=== PATIENT | female | born 1985 | race Caucasian/White ===

== ENCOUNTER 2024-08-20 07:46 | Outpatient (CLI) | payer BC, SELFPAY ==
--- NOTE | ~2024-08-20 | MM_ITS ---
EXAMINATION: MM screening stefani BI w ezekiel HISTORY: Screening TECHNIQUE: Craniocaudal and mediolateral oblique 3-D tomosynthesis images were obtained and synthetic 2-D images were generated. CAD analysis was submitted and interpreted. COMPARISON: No prior mammogram is available for comparison at this institution. BREAST PARENCHYMAL COMPOSITION: Not Dense: The breasts are almost entirely fatty. FINDINGS: There are small subcentimeter masses in the upper outer and lower inner quadrants of the le ft breast. There is no mammographic evidence for malignancy in the right breast. IMPRESSION: 1. Multiple left breast masses. 2. Additional mammographic views and possible breast ultrasound are recommended. BI-RADS Category 0: Incomplete: Needs additional imaging evaluation. Reviewed, dictated and finalized at location [] L TIER IMPRESSION: 1. Multiple left breast masses. 2. Additional mammographic views and possible breast ultrasound are recommended . BI-RADS Category 0: Incomplete: Needs additional imaging evaluation.
== END 2024-08-20 07:47 | disposition home or self-care (01) ==
LOC: ANHIMG 07:49
PROVIDERS: PCP Internal Medicine; Visit Provider Nurse Practitioner
DX: Z12.31 Encounter for screening mammogram for malignant neoplasm of breast (principal); R92.8 Other abnormal and inconclusive findings on diagnostic imaging of breast
CPT/HCPCS: 77063; 77067

== ENCOUNTER 2024-09-09 10:53 | Outpatient (CLI) | payer BC, SELFPAY ==
--- NOTE | ~2024-09-09 | MMUS_ITS ---
EXAMINATION: US breast LT complete, MM diagnostic stefani LT w ezekiel HISTORY: Follow-up left breast masses. TECHNIQUE: Additional 3-D tomosynthesis images of the left breast were performed and synthetic 2-D im ages were generated. CAD analysis was submitted and interpreted. High resolution complete left breast ultrasound was performed. COMPARISON: 08/20/2020 BREAST PARENCHYMAL COMPOSITION: Not Dense: The breasts are almost entirely fatty. FINDINGS: MAMMOGRAPHIC FINDINGS: There is a small benign-appearing intramammary lymph node in the upper outer quadrant of the left tony ast. There is a radiolucent mass in the upper outer quadrant of the left breast, posterior third. The re is a radiolucent mass in the lower inner quadrant of the left breast, middle third. There are no s uspicious calcifications or architectural distortion. ULTRASOUND: Complete US of all 4 quadrants of the left breast/s and retroareolar region was reviewed. At 12:00 ne ar the nipple there is a complicated cyst measuring 6 mm with internal septation. No internal vascula rity or posterior features. At 8:00, 6 cm from the nipple there is a 9 mm minimally complicated cyst. No suspicious solid masses to suggest malignancy. No definite sonographic correlate to mass in the u pper outer quadrant of the left breast, possibly also an intramammary lymph node. IMPRESSION: 1. Probable benign findings of the left breast. 2. Recommend 6 month follow-up diagnostic left mammogram and left breast ultrasound. BI-RADS category 3, probably benign findings. 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 Probable benign findings of the left breast. 2. Recommend 6 month follow-up diagnostic left mammogram and left breast ultras ound. BI-RADS category 3, probably benign findings.
--- OUTSIDE RECORDS SUMMARY | 2024-09-16 07:05 | XMS_ITS ---
Author Organization [facility] [employer] [facility] Address [facility] [address] [address] Care Team Providers Care Boat Cleaner Name Role Phone Carmen Pitno MD Primary Care Provider Halina Jesus Unavailable [phone] REASON FOR VISIT RE:RE:Nicotine patches Social History Sex Assigned At : Social History Observation Description Sex Assigned At Female Encounters Encounter Location Date Provider Diagnosis [place] [id number] [facility], [facility] [address] [address] 07/17/2024 Halina Pizarro Plan Of Treatment Next Appt Details Provider Name:Halina mcmullen, 10/15/2024 09:00:00 AM, [address], [facility] [address], [place], [address], Progress Notes * MILLY OLIVERADOB:[birth year] (38 yo F)Acc No.[id number]:07/17/2024 Patient:?MILLY OLIVERA :1985???Age:38 Y???Sex:Female Address:[address] [place] [address], [place], [address] * true * Date:? 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
--- OUTSIDE RECORDS SUMMARY | 2024-09-16 07:05 | XMS_ITS ---
Author Organization [facility] Address [address] [facility] [address] [facility] [address] [place] [address] Care Team Providers Care Manager Music Name Role Phone Carmen Pinto MD Primary Care Provider Halina Jesus Unavailable [phone] REASON FOR VISIT Nicotine patches Social History Sex Assigned At : Social History Observation Description Sex Assigned At Female Encounters Encounter Location Date Provider Diagnosis [facility] [address] [facility] [address] [facility] [address] [place] [address] 07/17/2024 Halina Pizarro Plan Of Treatment Next Appt Details Provider Name:Halina mcmullen, 10/15/2024 09:00:00 AM, [address], [facility] [address], [place], [address], Progress Notes * MILLY OLIVERADOB:[birth year] (38 yo F)Acc No.[id number]:07/17/2024 Patient:?MILLY OLIVERA :1985???Age:38 Y???Sex:Female Address:[address] [place] [address], [place], [address] * true * Date:? 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
--- OUTSIDE RECORDS SUMMARY | 2024-09-16 07:05 | XMS_ITS ---
Author Organization [facility] Address [address] [facility] [address] [facility] [place] [address] [place] [address] Care Team Providers Care Data Center Technician Name Role Phone Carmen Pinto MD Primary Care Provider UnavailHalina Maldonado Unavailable [phone] REASON FOR VISIT RE:Nicotine patches Social History Sex Assigned At : Social History Observation Description Sex Assigned At Female Encounters Encounter Location Date Provider Diagnosis [facility] [address] [facility] [place] [address] [place] [address] 07/17/2024 Halina Pizarro Plan Of Treatment Next Appt Details Provider Name:Halina mcmullen, 10/15/2024 09:00:00 AM, [address], [facility] [place] [address], [place], [address], Progress Notes * MILLY OLIVERADOB:[birth year] (38 yo F)Acc No.[id number]:07/17/2024 Patient:?MILLY OLIVERA :1985???Age:38 Y???Sex:Female Address:[address] [place] [address], [place], [address] * true * Date:? 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
--- OUTSIDE RECORDS SUMMARY | 2024-09-16 07:06 | XMS_ITS | Patient Health Record ---
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 Name Role Phone Carmen Pinto MD Primary Care Provider Unavailab Halina Monae Unavailable [phone] Tamy Bal Unavailable [phone] Migration, Provider Unavailable Unavailable Allergies No Known Allergies Results Component Value Reference Range Notes CBC W/ AUTO DIFF Reviewed date:10/05/2023 12:00:00 AM Interpretation: Performing Lab: Notes/Report: ABSOLUTE BASOPHILS 50 CELLS/UL ABSOLUTE EOSINOPHILS 525 CELLS/UL ABSOLUTE LYMPHOCYTES 2614 CELLS/UL ABSOLUTE MONOCYTES 515 CELLS/UL ABSOLUTE NEUTROPHILS 6197 CELLS/UL BASOPHILS 0.5 % EOSINOPHILS 5.3 % HEMATOCRIT 43.6 % HEMOGLOBIN 15.2 G/DL LYMPHOCYTES 26.4 % MCH 32.9 PG MCHC 34.9 G/DL MCV 94.4 FL MONOCYTES 5.2 % MPV 11.8 FL NEUTROPHILS 62.6 % PLATELET COUNT 259 THOUSAND/UL RDW 12.5 % RED BLOOD CELL COUNT 4.62 MILLION/UL WHITE BLOOD CELL COUNT 9.9 THOUSAND/UL CMP, SERUM OR PLASMA Reviewed date:10/05/2023 12:00:00 AM Interpretation: Performing Lab: Notes/Report: ALBUMIN 4.4 G/DL ALBUMIN/GLOBULIN RATIO 2.2 (CALC) ALKALINE PHOSPHATASE 69 U/L ALT 18 U/L AST 16 U/L BILIRUBIN, TOTAL 0.5 MG/DL BUN/CREATININE RATIO SEE NOTE: (CALC) CALCIUM 9.2 MG/DL CARBON DIOXIDE 23 MMOL/L CHLORIDE 104 MMOL/L CREATININE 0.70 MG/DL EGFR 113 ML/MIN/1.73M 2 GLOBULIN 2.0 G/DL (CALC) GLUCOSE 89 MG/DL POTASSIUM 3.7 MMOL/L PROTEIN, TOTAL 6.4 G/DL SODIUM 139 MMOL/L UREA NITROGEN (BUN) 7 MG/DL HBA1C (HEMOGLOBIN A1C)NAOMI Reviewed date:10/05/2023 12:00:00 AM Interpretation: Performing Lab: Notes/Report: HEMOGLOBIN A1C 4.7 % OF TOTAL HGB UDT Reviewed date:04/07/2024 12:50:49 PM Interpretation: Performing Lab: Notes/Report: THC neg 0 - 50 ng/ml Cocaine neg 0 - 300 ng/ml Amphetamine neg 0 - 1000 ng/ml Buprenorphine (BUP) neg 0 - 10 ng/ml Secobarbital (Bar) neg 0 - 300 ng/ml Oxazepam (BZO) neg 0 - 300 ng/ml 7-ivlhcpksna-1,0-dudaiyqo-0, 3-diphen ylpyrrolidine (EDDP) neg 0 - 300 ng/ml Methamphetamine (MET) neg 0 - 1000 ng/ml Methylenedioxymethamphetamine (MDMA) neg 0 - 500 ng/ml Morphine (MOP 300/[id number]) neg 0 - 300 ng/ml Methadone (MTD) neg 0 - 300 ng/ml Phencyclidine (PCP) neg 0 - 25 ng/ml Propoxyphene (PPX) neg 0 - 300 ng/ml Nortriptyline (TCA) neg 0 - 1000 ng/ml Oxycodone pos 0 - 300 ng/ml UDT Reviewed date:04/21/2024 09:11:28 AM Interpretation: Performing Lab: Notes/Report: THC NEG 0 - 50 ng/ml Cocaine Neg 0 - 300 ng/ml Amphetamine NEG 0 - 1000 ng/ml Buprenorphine (BUP) NEG 0 - 10 ng/ml Secobarbital (Bar) NEG 0 - 300 ng/ml Oxazepam (BZO) NEG 0 - 300 ng/ml 4-zemetxkwpz-9,2-tgzfxcti-2, 3-diphen ylpyrrolidine (EDDP) NEG 0 - 300 ng/ml Methamphetamine (MET) NEG 0 - 1000 ng/ml Methylenedioxymethamphetamine (MDMA) NEG 0 - 500 ng/ml Morphine (MOP 300/[id number]) NEG 0 - 300 ng/ml Methadone (MTD) NEG 0 - 300 ng/ml Phencyclidine (PCP) NEG 0 - 25 ng/ml Propoxyphene (PPX) NEG 0 - 300 ng/ml Nortriptyline (TCA) NEG 0 - 1000 ng/ml Oxycodone POS 0 - 300 ng/ml UDT Reviewed date:07/16/2024 02:31:01 PM Interpretation: Performing Lab: Notes/Report: THC n 0 - 50 ng/ml Cocaine n 0 - 300 ng/ml Amphetamine n 0 - 1000 ng/ml Buprenorphine (BUP) n 0 - 10 ng/ml Secobarbital (Bar) n 0 - 300 ng/ml Oxazepam (BZO) n 0 - 300 ng/ml 1-ppvxfyzapb-6,6-chvbjnqg-4, 3-diphen ylpyrrolidine (EDDP) n 0 - 300 ng/ml Methamphetamine (MET) n 0 - 1000 ng/ml Methylenedioxymethamphetamine (MDMA) n 0 - 500 ng/ml Morphine (MOP 300/ETP1167) n 0 - 300 ng/ml Methadone (MTD) n 0 - 300 ng/ml Propoxyphene (PPX) n 0 - 300 ng/ml Nortriptyline (TCA) n 0 - 1000 ng/ml Oxycodone n 0 - 300 ng/ml LITHIUM (613) Reviewed date:07/28/2024 09:44:59 AM Interpretation: Performing Lab:MIGUEL [facility] [place]rami[address] HongaKS[address] Alberta Kaur MD Notes/Report: NON-FASTING; NON-FASTING; NON-FASTING; NON-FASTING; NON-FAST FASTING:YES FASTING: YES LITHIUM 0.5 0.6-1.2 mmol/L VITAMIN B12/FOLATE, SERUM PA AYAKA (7004) Reviewed date:07/28/2024 09:44:29 AM Interpretation: Performing Lab:Nataliya RIVERA-Ezcuar[address] Mauro HongaKS[address] Alberta Kaur MD Notes/Report: NON-FASTING; NON-FASTING; NON-FASTING; NON-FASTING; NON-FAST FASTING:YES FASTING: YES VITAMIN B12 [phone] pg/mL Please Note: Although the reference range for vitamin B12 is 200-1100 pg/mL, it has been reported that between 5 and 10% of patients with values between 200 and 400 pg/mL may experience neuropsychiatric and hematologic abnormalities due to occult B12 deficiency; less than 1% of patients with values above 400 pg/mL will have symptoms. FOLATE, SERUM 4.9 Reference Range Low: <3.4 Borderline: 3.4-5.4 Normal: >5.4 COMPREHENSIVE METABOLIC PANE L (07293) Reviewed date:07/28/2024 09:44:15 AM Interpretation: Performing Lab:KS, [facility]-[id number] Dannielle [facility], VnbbeuNP[address] Alberta Kaur MD Notes/Report: NON-FASTING; NON-FASTING; NON-FASTING; NON-FASTING; NON-FAST FASTING:YES FASTING: YES GLUCOSE 82 65-99 mg/dL Fasting reference interval UREA NITROGEN (BUN) 7 7-25 mg/dL CREATININE 0.69 0.50-0.97 mg/dL EGFR 113 > OR = 60 mL/min/1.73m2 BUN/CREATININE RATIO SEE NOTE: 6-22 (calc) Not Reported: BUN and Creatinine are within reference range. SODIUM 137 135-146 mmol/L POTASSIUM 4.2 3.5-5.3 mmol/L CHLORIDE 104 98-110 mmol/L CARBON DIOXIDE 26 20-32 mmol/L CALCIUM 9.3 8.6-10.2 mg/dL PROTEIN, TOTAL 6.7 6.1-8.1 g/dL ALBUMIN 4.4 3.6-5.1 g/dL GLOBULIN 2.3 1.9-3.7 g/dL (calc) ALBUMIN/GLOBULIN RATIO 1.9 1.0-2.5 (calc) BILIRUBIN, TOTAL 0.7 0.2-1.2 mg/dL ALKALINE PHOSPHATASE 69 31-125 U/L AST 19 10-30 U/L ALT 25 6-29 U/L LIPID PANEL, SERUM Reviewed date:10/05/2023 12:00:00 AM Interpretation: Performing Lab: Notes/Report: CHOL/HDLC RATIO 5.6 (CALC) CHOLESTEROL, TOTAL 196 MG/DL HDL CHOLESTEROL 35 MG/DL LDL-CHOLESTEROL MG/DL (CALC) NON HDL CHOLESTEROL 161 MG/DL (CALC) TRIGLYCERIDES 401 MG/DL LITHIUM, SERUM Reviewed date:10/05/2023 12:00:00 AM Interpretation: Performing Lab: Notes/Report: LITHIUM 0.8 MMOL/L TSH, SERUM, REFLEX FREE T4 Reviewed date:10/05/2023 12:00:00 AM Interpretation: Performing Lab: Notes/Report: TSH W/REFLEX TO FT4 3.05 MIU/L VITAMIN D, 25-HYDROXY, TOTAL , SERUM Reviewed date:10/05/2023 12:00:00 AM Interpretation: Performing Lab: Notes/Report: VITAMIN D,25-OH,TOTAL,IA 27 NG/ML CALCITRIOL 1,25 DIHYDROXYVIT SILVA D (20842) Reviewed date:07/28/2024 09:44:39 AM Interpretation: Performing Lab:Z3E, [facility]-[address] [place] [address], [address] HospitalIobmjvykalVS[address] Sandeep Sorensen MD,PhD Notes/Report: NON-FASTING; NON-FASTING; NON-FASTING; NON-FASTING; NON-FAST FASTING:YES FASTING: YES VITAMIN D, 1,25 (OH)2, TOTAL 51 18-72 pg/mL VITAMIN D3, 1,25 (OH)2 51 VITAMIN D2, 1,25 (OH)2 <8 (Note) Vitamin D3, 1,25(OH)2 indicates both endogenous production and supplementation. Vitamin D2, 1,25(OH)2 is an indicator of exogenous sources, such as diet or supplementation. Interpretation and therapy are based on measurement of Vitamin D, 1,25 (OH)2, Total. This test was developed, and its analytical performance characteristics have been determined by [employer]. It has not been cleared or approved by the FDA. This assay has been validated pursuant to the CLIA regulations and is used for clinical purposes. For additional information, please refer to http://education.[employer].com/faq/FA Q199 (This link is being provided for informational/educatio nal purposes only.) [facility] [employer] [address] [facility] [address] [facility] [id number] Sandeep Sorensen MD, PhD HEMOGLOBIN A1c (496) Reviewed date:07/28/2024 09:44:47 AM Interpretation: Performing Lab:BROWN [facility]De[facility]arn[facility] Word Health SystemNhaoq[address] [facility] HospitalTfqenjcJD[address] [facility] Notes/Report: NON-FASTING; NON-FASTING; NON-FASTING; NON-FASTING; NON-FAST FASTING:YES FASTING: YES HEMOGLOBIN A1c 5.1 <5.7 % of total Hgb For the purpose of screening for the presence of diabetes: <5.7% Consistent with the absence of diabetes 5.7-6.4% Consistent with increased risk for diabetes (prediabetes) > or =6.5% Consistent with diabetes This assay result is consistent with a decreased risk of diabetes. Currently, no consensus exists regarding use of hemoglobin A1c for diagnosis of diabetes in children. According to [place] [employer] Association (ADA) guidelines, hemoglobin A1c <7.0% represents optimal control in non- diabetic patients. Different metrics may apply to specific patient populations. Standards of Medical Care in Diabetes(ADA). CBC (INCLUDES DIFF/PLT) (REF L) (87340) Reviewed date:07/28/2024 09:44:06 AM Interpretation: Performing Lab:MIGUEL [facility]-[id number] Dannielle [facility], VwrosnMR[address] Alberta Kaur MD Notes/Report: NON-FASTING; NON-FASTING; NON-FASTING; NON-FASTING; NON-FAST FASTING:YES FASTING: YES WHITE BLOOD CELL COUNT 11.0 3.8-10.8 Thousand/uL RED BLOOD CELL COUNT 4.96 3.80-5.10 Million/uL HEMOGLOBIN 16.0 11.7-15.5 g/dL HEMATOCRIT 48.5 35.0-45.0 % MCV 97.8 80.0-100.0 fL MCH 32.3 27.0-33.0 pg MCHC 33.0 32.0-36.0 g/dL For adults, a slight decrease in the calculated MCHC value (in the range of 30 to 32 g/dL) is most likely not clinically significant; however, it should be interpreted with caution in correlation with other red cell parameters and the patient's clinical condition. RDW 12.4 11.0-15.0 % PLATELET COUNT 339 140-400 Thousand/uL MPV 11.1 7.5-12.5 fL ABSOLUTE NEUTROPHILS [phone] cells/uL ABSOLUTE LYMPHOCYTES 0983 422-5514 cells/uL ABSOLUTE MONOCYTES 385 200-950 cells/uL ABSOLUTE EOSINOPHILS 374 15-500 cells/uL ABSOLUTE BASOPHILS 55 0-200 cells/uL NEUTROPHILS 75 LYMPHOCYTES 17.6 MONOCYTES 3.5 EOSINOPHILS 3.4 BASOPHILS 0.5 DRUG MONITOR, OXYCODONE, W/C ONF, URINE (77235) Reviewed date:05/06/2024 11:12:45 AM Interpretation: Performing Lab:MAREI, [employer]-[address], LiquipelUurbWQ[address] Raza Winters Notes/Report: FASTING: NO Oxycodone TNP TEST NOT PERFORMED The container has no or insufficient patient identification. DRUG MONITOR, BENZO, QN, URI [place] (21909) Reviewed date:05/06/2024 11:12:52 AM Interpretation: Performing Lab:MARIE, [facility]-[address], BizArkLenyWR[address] Raza Winters, Director - [id number] [facility] HospitalProgrammrWashington Notes/Report: FASTING: NO Alphahydroxyalprazolam TNP TEST NOT PERFORMED The container has no or insufficient patient identification. Notes and Comments This drug testing is for medical treatment only. Analysis was performed as non-forensic testing and these results should be used only by healthcare providers to render diagnosis or treatment, or to monitor progress of medical conditions. Healthcare Providers needing Interpretation assistance, please contact us at [phone] ( ) M-F, 8am to 10pm EST Reason For Referral No Information Medications Medication SIG (Take, Route, Frequency, Duration) Notes Start Date End Date Status DULoxetine HCl 60 MG 1 capsule Oral Once a day for 30 days provider change, please DC refills from Tamy Burroughs Active Metoprolol Succinate ER 25 MG Oral 01/07/2024 Active EMGALITY PEN 120 MG/ML SUBCUTANEOUS PEN INJECTOR *Reorder from [employer] for eRx and Interaction Alerts* 01/07/2024 Active EPINEPHrine 0.3 MG/0.3ML Injection 01/07/2024 Active Ergocalciferol 1.25 MG (56614 UT) 1 capsule Oral once a week for 84 days provider change, please DC refills from Tamy Burroughs 01/07/2024 12/31/2024 Active Lott Carbonate 600 MG 1 capsule Oral twice a day for 30 days provider change, please DC refills from Tamy W. Active Naltrexone HCl 50 MG 1 tablet Oral Once a day for 30 days provider change, please DC refills from Tamy Burroughs 10/14/2024 Active Vraylar 3 MG 1 capsule Orally Once a day for 30 days provider change, please DC refills from Tamy Burroughs Active Levothyroxine Sodium 25 MCG Oral 01/07/2024 Active Prazosin HCl 2 MG 1 capsule at bedtime Oral Once a day for 30 days provider change, please DC refills from Tamy Becerra. Active clonazePAM 0.5 MG 1 tablet Oral Once a day for 30 days As needed provider change, please DC refills from Tamy Burroughs 07/16/2024 Active LILETTA 20.4 MCG/24 HR (UP TO 8 YEARS) 52 MG INTRAUTERINE DEVICE *Reorder from [employer] for eRx and Interaction Alerts* 01/07/2024 Active Immunizations Vaccine Route Administration Date Status Comme nts Influenza, injectable, MDCK, preservative free Unknown 06/10/2020 Administered [facility] Covid-19 Vaccine Unknown 11/09/2020 Administere d Pfizer Biontech Covid-19 Vac cine 2nd dose Unknown 07/31/2021 Administered Pfizer [employer] Covid-19 Vac cine 2nd dose Unknown 06/24/2022 Administered Social History Tobacco Use: Social History Observation Description Date Details (start date - stop date) Current Smoker 07/23/2002 - NA Sex Assigned At : Social History Observation Description Sex Assigned At Female Tobacco Control (Standard) Question Answer Notes Tobacco use: Current smoker When did you start smoking? 07/23/2002 How often do you smoke cigarettes? Every day How many cigarettes a day do you smoke? 21-30 How soon after you wake up do you smoke your fir st cigarette? 6-30 minutes Are you interested in quitting? Not ready to edwin t AUDIT-C (Standard) Question Answer Notes Points 1 Interpretation Positive Did you have a drink contain ing alcohol in the past year? Yes How often did you have six o r more drinks on one occasion in the past year? Never (0 point) How many drinks did you have on a typical day when you were drinking in the past year? 1 or 2 drinks (0 point) How often did you have a dri nk containing alcohol in the past year? Monthly or less (1 point) Problems Problem Type SNOMED Code ICD Code Onset Dates Problem Status W/U Status Risk Notes Problem Vitamin D deficiency (60077727) Vitamin D deficiency, unspecified (E55.9) 4 Active confirmed Problem Generalized anxiety disorder (12744472) Generalized anxiety disorder (F41.1) 4 Active confirmed Problem Posttraumatic stress disorder (25855854) Post-traumatic stress disorder, chronic (F43.12) 4 Active confirmed Problem Bipolar I disorder (993792442) Bipolar I disorder (F31.9) Active confirmed Problem Tobacco user (690350389) Nicotine dependence with current use (F17.200) Active confirmed Vital Signs Heart Rate 112 /min 07/16/2024 Height-cm 170.18 cm 07/16/2024 Blood pressure diastolic 101 mm Hg 07/16/2024 Weight-kg 96.16 kg 07/16/2024 Height 67.00 in 07/16/2024 Blood pressure systolic 145 mm Hg 07/16/2024 Weight 212 lbs 07/16/2024 BMI 33.2 kg/m2 07/16/2024 Encounters Encounter Location Date Provider Diagnosis [facility] [place] [id number] [facility] [address] [address] 10/04/2023 Tamy Bal Generalized anxiety disorder F41.1 ; Bipolar disorder, unspecified F31.9 ; Vitamin D deficiency, unspecified E55.9 ; Post-traumatic stress disorder, chronic F43.12 and Other mcfp (current) drug therapy Z79.899 [facility] [address] [facility] [address] [address] 10/06/2023 Provider Migration Vitamin D deficiency, unspecified E55.9 [facility] [place] [id number] [facility] [address] [address] 01/07/2024 Tamy Bal Vitamin D deficiency, unspecified E55.9 ; Generalized anxiety disorder F41.1 ; Bipolar disorder, unspecified F31.9 and Post-traumatic stress disorder, chronic F43.12 [facility] [address] [facility] [address] [address] 04/07/2024 Tamy Bal Bipolar I disorder F31.9 ; Generalized anxiety disorder F41.1 ; Post-traumatic stress disorder, chronic F43.12 and Vitamin D deficiency, unspecified E55.9 [facility] [address] [facility] [address] [address] 04/21/2024 Tamy Bal Bipolar I disorder F31.9 ; Generalized anxiety disorder F41.1 ; Post-traumatic stress disorder, chronic F43.12 and Vitamin D deficiency, unspecified E55.9 [facility], [facility] [address] [place] [address] 05/19/2024 Tamy Mally Bipolar I disorder F31.9 ; Generalized anxiety disorder F41.1 ; Post-traumatic stress disorder, chronic F43.12 and Vitamin D deficiency, unspecified E55.9 [facility], [facility] [address] [place] [address] 07/16/2024 Halina Pizarro Bipolar I disorder F31.9 ; Generalized anxiety disorder F41.1 ; Post-traumatic stress disorder, chronic F43.12 ; Vitamin D deficiency, unspecified E55.9 and Nicotine dependence with current use F17.200 [facility], [facility] [address] [place] [address] 09/20/2023 Provider Migration [facility], [facility] [address] [place] [address] 09/24/2023 Provider [facility], [facility] [address] [place] [address] 09/25/2023 Provider Migration [facility], [facility] [address] [place] [address] 10/06/2023 Provider [facility], [facility] [address] [place] [address] 10/23/2023 Provider Migration [facility], [facility] [address] [place] [address] 01/19/2024 Provider [facility], [facility] [address] [place] [address] 01/20/2024 [facility], [facility] [address] [place] [address] 05/07/2024 Tamy Bal [facility], [facility] [address] [place] [address] 05/07/2024 [facility], [facility] [address] [place] [address] 05/08/2024 [facility], [facility] [address] [facility] [address] [place] [address] 05/08/2024 Tamy Mally [facility] [address] [facility] [address] [place] [address] 07/17/2024 Halina Sirishaernesto [place] [address] [facility] [address] [place] [address] 07/17/2024 Halina Pizarro [facility], [place] [address] [address] 07/17/2024 Halina Sirishaernesto Assessments Encounter Date Diagnosis (ICD Code) Assessment Notes Treatment Notes Treatment Clinical Notes Section Notes 04/07/2024 Bipolar I disorder (ICD-10 - F31.9) decrease latuda to 80mg daily x 1 wk, then 40mg daily x 1 wk, then stop at the same time start vraylar 1.5mg every other day x 1 wk, then daily (gave 3 boxes samples) cont duloxetine 60mg daily (higher dose seemed to cause activation) cont lithium 600 mg BID- stay well hydrated, avoid NSAIDS or overheating, has IUD cont therapy *After visit: note UDS +OXY, neg BZO, send for conf having depression, discuss several options, liked vraylarin past but was costly, but has new insurance now, shared decision to try vraylar again, review r/b/se. cont therapy f/u in 2 wks, earlier if concerns Electronic Prior Authorization was requested for Vraylar 1.5 MG Capsule. 01/07/2024 Vitamin D deficiency, unspecified (ICD-10 - E55.9) 01/07/2024 Bipolar disorder, unspecified (ICD-10 - F31.9) 01/07/2024 Generalized anxiety disorder (ICD-10 - F41.1) 01/07/2024 Post-traumatic stress disorder, chronic (ICD-10 - F43.12) 10/04/2023 Vitamin D deficiency, unspecified (ICD-10 - E55.9) 10/04/2023 Bipolar disorder, unspecified (ICD-10 - F31.9) 10/04/2023 Generalized anxiety disorder (ICD-10 - F41.1) 10/04/2023 Post-traumatic stress disorder, chronic (ICD-10 - F43.12) 10/04/2023 Other mcfp (current) drug therapy (ICD-10 - Z79.899) 04/21/2024 Bipolar I disorder (ICD-10 - F31.9) having improvement just finished latuda taper increase vraylar to 3mg daily cont duloxetine 60mg daily (higher dose seemed to cause activation) cont lithium 600 mg BID- stay well hydrated, avoid NSAIDS or overheating, has IUD cont therapy again UDS +OXY, neg BZO; UDS conf from last visit not in chart; denies OXY use, send for conf if positive will have further discussion, and should not combine with BZO having improvement, discuss options, allow more time vs increase, she feels mood and anxiety sx are still significant at 03/12 and wants to increase, review r/b/se, if side effects can take 3mg every other day and try increase again in a few weeks. pt v/u BP elevated today, denies sx, had energy drink this am-doesn't usually, advise against; f/u PCP cont therapy f/u in 1 month, earlier if concerns 10/06/2023 Vitamin D deficiency, unspecified (ICD-10 - E55.9) 07/16/2024 Generalized anxiety disorder (ICD-10 - F41.1) Assessment and Plan: 1. Bipolar Disorder - Patient reported a manic episode at the end of May and beginning of June, triggered by uncle's , work stress, and seasonal changes. - Currently stable and feeling better - Continues to see therapist twice a week - Currently on Vraylar 3 mg, switched from Latuda due to lack of effectiveness. Plan: - Discussed options in medication changes, she prefers not to change medications right now, she feels good and safe, felt she controlled things well, and therapy is helps tremendously. - Monitor for any changes in mood or symptoms. - Follow up in September, call if concerns arise and come in sooner cont vraylar 3 mg, cont lithium 300 mg BID 2. Anxiety - Patient reports manageable anxiety related to starting a new job, using relaxation techniques and coping skills. Plan: - continue cymbalta 60 MG DAILY - Continue current coping strategies and monitor for any increase in anxiety levels. - Encourage patient to reach out if anxiety worsens. 6. Lott Monitoring - Last labs were in October, and patient is due for updated labs. Plan: - Order labs for lithium levels at [facility] in [place]. - Instruct patient to complete labs within the next few days. 7. Nicotine dependence - trying to quit, asks for patches - start nicotine patches, 21 mg 7. Follow-up - Schedule a follow-up appointment in September to assess patient's progress and address any concerns. 07/16/2024 Bipolar I disorder (ICD-10 - F31.9) Assessment and Plan: 1. Bipolar Disorder - Patient reported a manic episode at the end of May and beginning of June, triggered by uncle's , work stress, and seasonal changes. - Currently stable and feeling better - Continues to see therapist twice a week - Currently on Vraylar 3 mg, switched from Latuda due to lack of effectiveness. Plan: - Discussed options in medication changes, she prefers not to change medications right now, she feels good and safe, felt she controlled things well, and therapy is helps tremendously. - Monitor for any changes in mood or symptoms. - Follow up in September, call if concerns arise and come in sooner cont vraylar 3 mg, cont lithium 300 mg BID 2. Anxiety - Patient reports manageable anxiety related to starting a new job, using relaxation techniques and coping skills. Plan: - continue cymbalta 60 MG DAILY - Continue current coping strategies and monitor for any increase in anxiety levels. - Encourage patient to reach out if anxiety worsens. 6. Lott Monitoring - Last labs were in October, and patient is due for updated labs. Plan: - Order labs for lithium levels at [facility] in [place]. - Instruct patient to complete labs within the next few days. 7. Nicotine dependence - trying to quit, asks for patches - start nicotine patches, 21 mg 7. Follow-up - Schedule a follow-up appointment in September to assess patient's progress and address any concerns. 05/19/2024 Bipolar I disorder (ICD-10 - F31.9) continued improvement cont vraylar 3mg daily cont duloxetine 60mg daily (higher dose seemed to cause activation) cont lithium 600 mg BID- stay well hydrated, avoid NSAIDS or overheating, has IUD cont therapy tolerating med changes and significant improvement UDS conf-cannot find in chart, but recall seeing a result that was negative oxy after staff contacted lab about sample ID issue. Will have staff look for or call lab to resend result, to confirm/have actual. shared decision to cont current medications, education on meds and treatment course cont therapy f/u in 3 months, call for earlier if concerns 04/07/2024 Generalized anxiety disorder (ICD-10 - F41.1) as above cont clonazepam 0.5mg taking once daily prn, minimize use-PDMP last filled 03/20/24cont therapy and using coping skills 04/07/2024 Post-traumatic stress disorder, chronic (ICD-10 - F43.12) cont prazosin 2 mg po qhs cont naltrexone 50 mg po qd- for self-harm thoughts 04/21/2024 Generalized anxiety disorder (ICD-10 - F41.1) as above cont clonazepam 0.5mg taking once daily prn, minimize usecont therapy and using coping skills 05/19/2024 Generalized anxiety disorder (ICD-10 - F41.1) meds, therapy as above cont clonazepam 0.5mg taking once daily prn, minimize use 07/16/2024 Post-traumatic stress disorder, chronic (ICD-10 - F43.12) Assessment and Plan: 1. Bipolar Disorder - Patient reported a manic episode at the end of May and beginning of June, triggered by uncle's , work stress, and seasonal changes. - Currently stable and feeling better - Continues to see therapist twice a week - Currently on Vraylar 3 mg, switched from Latuda due to lack of effectiveness. Plan: - Discussed options in medication changes, she prefers not to change medications right now, she feels good and safe, felt she controlled things well, and therapy is helps tremendously. - Monitor for any changes in mood or symptoms. - Follow up in September, call if concerns arise and come in sooner cont vraylar 3 mg, cont lithium 300 mg BID 2. Anxiety - Patient reports manageable anxiety related to starting a new job, using relaxation techniques and coping skills. Plan: - continue cymbalta 60 MG DAILY - Continue current coping strategies and monitor for any increase in anxiety levels. - Encourage patient to reach out if anxiety worsens. 6. Lott Monitoring - Last labs were in October, and patient is due for updated labs. Plan: - Order labs for lithium levels at [facility] in [place]. - Instruct patient to complete labs within the next few days. 7. Nicotine dependence - trying to quit, asks for patches - start nicotine patches, 21 mg 7. Follow-up - Schedule a follow-up appointment in September to assess patient's progress and address any concerns. 05/19/2024 Post-traumatic stress disorder, chronic (ICD-10 - F43.12) cont prazosin 2 mg po qhs cont naltrexone 50 mg po qd- for self-harm thoughts 04/21/2024 Post-traumatic stress disorder, chronic (ICD-10 - F43.12) nightmares resolved cont prazosin 2 mg po qhs cont naltrexone 50 mg po qd- for self-harm thoughts 07/16/2024 Vitamin D deficiency, unspecified (ICD-10 - E55.9) Assessment and Plan: 1. Bipolar Disorder - Patient reported a manic episode at the end of May and beginning of June, triggered by uncle's , work stress, and seasonal changes. - Currently stable and feeling better - Continues to see therapist twice a week - Currently on Vraylar 3 mg, switched from Latuda due to lack of effectiveness. Plan: - Discussed options in medication changes, she prefers not to change medications right now, she feels good and safe, felt she controlled things well, and therapy is helps tremendously. - Monitor for any changes in mood or symptoms. - Follow up in September, call if concerns arise and come in sooner cont vraylar 3 mg, cont lithium 300 mg BID 2. Anxiety - Patient reports manageable anxiety related to starting a new job, using relaxation techniques and coping skills. Plan: - continue cymbalta 60 MG DAILY - Continue current coping strategies and monitor for any increase in anxiety levels. - Encourage patient to reach out if anxiety worsens. 6. Lott Monitoring - Last labs were in October, and patient is due for updated labs. Plan: - Order labs for lithium levels at [facility] in [place]. - Instruct patient to complete labs within the next few days. 7. Nicotine dependence - trying to quit, asks for patches - start nicotine patches, 21 mg 7. Follow-up - Schedule a follow-up appointment in September to assess patient's progress and address any concerns. 04/07/2024 Vitamin D deficiency, unspecified (ICD-10 - E55.9) cont Vit D2 83863 units weekly 04/21/2024 Vitamin D deficiency, unspecified (ICD-10 - E55.9) cont Vit D2 01757 units weekly (sent #12 on 04/07) 07/16/2024 Nicotine dependence with current use (ICD-10 - F17.200) Assessment and Plan: 1. Bipolar Disorder - Patient reported a manic episode at the end of May and beginning of June, triggered by uncle's , work stress, and seasonal changes. - Currently stable and feeling better - Continues to see therapist twice a week - Currently on Vraylar 3 mg, switched from Latuda due to lack of effectiveness. Plan: - Discussed options in medication changes, she prefers not to change medications right now, she feels good and safe, felt she controlled things well, and therapy is helps tremendously. - Monitor for any changes in mood or symptoms. - Follow up in September, call if concerns arise and come in sooner cont vraylar 3 mg, cont lithium 300 mg BID 2. Anxiety - Patient reports manageable anxiety related to starting a new job, using relaxation techniques and coping skills. Plan: - continue cymbalta 60 MG DAILY - Continue current coping strategies and monitor for any increase in anxiety levels. - Encourage patient to reach out if anxiety worsens. 6. Lott Monitoring - Last labs were in October, and patient is due for updated labs. Plan: - Order labs for lithium levels at [facility] in [place]. - Instruct patient to complete labs within the next few days. 7. Nicotine dependence - trying to quit, asks for patches - start nicotine patches, 21 mg 7. Follow-up - Schedule a follow-up appointment in September to assess patient's progress and address any concerns. 05/19/2024 Vitamin D deficiency, unspecified (ICD-10 - E55.9) cont Vit D2 91502 units weekly Plan Of Treatment Next Appt Details Provider Name:Halina Grimmjaun mcmullen, 10/15/2024 09:00:00 AM, [address] [address], [facility] [address], [place], [address], Insurance Providers Payer Name Payer Address Payer Phone Subscriber Number Group Number Insured Name Patient Relationship to Insured Coverage Start Date Coverage End Date [facility] [address] [place] [phone] [id number] [id number] , MILLY Self - patient is the insured Medical (General) History Medical History History ICD Code Problems: Bipolar I disorder Chronic post-traumatic stress disorder Generalized anxiety disorder Hypothyroidism Long-term current use of cannabis Nicotine dependence with current use Obesity Vitamin D deficiency , Past Psychiatric History: An xiety Disorder,Panic Disorder,PTSD,Major Depressive Episode,Bipolar Disorder abdominal aortic aneurysm: No atrial fibrillation: No chronic fatigue syndrome: No essential tremor: No hyperlipidemia: No hypertension: No Parkinson's disease: No restless leg syndrome: No stroke: No subdural hematoma: No type 1 diabetes mellitus: No type 2 diabetes mellitus: No vitamin B12 deficiency: No vitamin D deficiency: Yes
== END 2024-09-09 10:54 | disposition home or self-care (01) ==
PROVIDERS: PCP Internal Medicine; Visit Provider Obstetrics & Gynecology Gynecology
DX: R92.8 Other abnormal and inconclusive findings on diagnostic imaging of breast (principal)
CPT/HCPCS: 76641; 77061; 77065; G0279

== ENCOUNTER 2025-03-09 10:19 | Outpatient (CLI) | payer OTHER, SELFPAY ==
--- NOTE | ~2025-03-09 | MMUS_ITS ---
EXAMINATION: US breast LT limited, MM diagnostic stefani LT w ezekiel HISTORY: Follow-up left breast masses TECHNIQUE: Additional 3-D tomosynthesis images of the left breast were performed and synthetic 2-D im ages were generated. CAD analysis was submitted and interpreted. High resolution Limited left breast ultrasound was performed. COMPARISON: Comparison to multiple prior studies sequentially, with oldest reviewed study dated 08/03. BREAST PARENCHYMAL COMPOSITION: Not Dense: The breasts are almost entirely fatty. FINDINGS: MAMMOGRAPHIC FINDINGS: Stable low-density masses lower inner quadrant of the left breast, middle third and in the outer aspe ct of the left breast, middle third. ULTRASOUND: Limited left breast ultrasound: At 12:00 near the nipple there is a 6 mm cyst. At 8:00, 6 cm from the nipple there is a 1 cm cyst. No suspicious masses in the left breast to suggest malignancy. IMPRESSION: 1. No evidence for malignancy in the left breast. Benign findings. 2. Routine yearly screening mammogram and regular clinical breast examination are recommended. BI-RADS Category 2: Benign finding(s). Reviewed, dictated and finalized at location A. IMPRESSION: 1. No evidence for malignancy in the left breast. Benign findings. 2. Routine yearly screening mammogram and regular clinical breast examination a re recommended. BI-RADS Category 2: Benign finding(s).
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
== END 2025-03-09 10:20 | disposition home or self-care (01) ==
PROVIDERS: Visit Provider Student in an Organized Health Care Education/Training Program
DX: R92.8 Other abnormal and inconclusive findings on diagnostic imaging of breast (principal)
CPT/HCPCS: 76642; 77061; 77065; G0279